=== PATIENT | male | born 1995 | race Caucasian/White ===

== ENCOUNTER 2017-04-24 19:33 | Emergency (ER) | payer OTHER ==
[~2017-04-24] VITALS: Ht 175.3 cm; Wt 124.0 kg
[2017-04-24 19:36] VITALS: BP 141/94
== END 2017-04-25 01:19 | disposition home or self-care (01) ==
LOC: ED 04-25 00:13
DX: F10.120 Alcohol abuse with intoxication, uncomplicated (principal); F17.210 Nicotine dependence, cigarettes, uncomplicated
CPT/HCPCS: 99283

== ENCOUNTER 2017-05-09 17:34 | Emergency (ER) | payer OTHER ==
[~2017-05-09] VITALS: Ht 177.8 cm; Wt 89.0 kg
[2017-05-09] MEDS ORDERED: HYDR25CA PO (17:52)
[2017-05-09] MEDS ORDERED: CARB200T PO (17:52)
[2017-05-09 18:05] LABS: DAU SCREEN DISCLAIMER
[2017-05-09 18:36] LABS: ASPARTATE AMINO TRANSFERASE 33 U/L (15-37); BLOOD UREA NITROGEN 17 mg/dL (7-18)
[2017-05-09 18:44] LABS: ACETAMINOPHEN < 2 mcg/mL (10-30)
[2017-05-09] MEDS ORDERED: ZIPRASIDONE 20 MG INJ IM ONE (19:00)
[2017-05-09 22:56] VITALS: BP 129/79
== END 2017-05-09 22:59 | disposition home or self-care (01) ==
LOC: ED 19:18
DX: F10.120 Alcohol abuse with intoxication, uncomplicated (principal); F32.9 Major depressive disorder, single episode, unspecified; F43.0 Acute stress reaction; M10.9 Gout, unspecified; F17.200 Nicotine dependence, unspecified, uncomplicated
CPT/HCPCS: 36415; 80053; 80307; 80329; 85025; 93005; 99285; G0480

== ENCOUNTER 2017-05-11 00:41 | Emergency (ER) | payer OTHER ==
[~2017-05-11] VITALS: Ht 175.3 cm; Wt 105.0 kg
[~2017-05-11 00:41] MED LIST: CARB200T PO; HYDR25CA PO
[2017-05-11 00:45] VITALS: BP 125/77
[2017-05-11] MEDS ORDERED: SODIUM CHLORIDE 0.9% 1,000ML IVBOLUS ONE (01:30)
== END 2017-05-11 05:05 | disposition home or self-care (01) ==
LOC: ED 03:38
DX: F10.120 Alcohol abuse with intoxication, uncomplicated (principal); F12.129 Cannabis abuse with intoxication, unspecified; F11.129 Opioid abuse with intoxication, unspecified
CPT/HCPCS: 36415; 80307; 99283